=== PATIENT | male | born 1970 | race Caucasian/White ===

== ENCOUNTER 2023-08-03 10:37 | Emergency (ER) | payer OTHER, SELFPAY ==
--- NOTE | ~2023-08-03 | CT_ITS ---
EXAMINATION: CT lumbar spine wo con DATE: 08/03/2023 13:29 INDICATION: Low back pain. TECHNIQUE: Computed tomography (CT) of the lumbar spine was performed without intravenous contrast. A utomated exposure control and iterative reconstruction technique were employed. The dose-length produ ct was 1362.12 mGy-cm. COMPARISON: None FINDINGS: Bone alignment is normal. There is mild chronic anterior wedging of T12 vertebral body, lik ricardo physiologic. There are Schmorl's nodes at multiple levels. There is mildly decreased disc height at T11-T12. The following disc levels are specifically discussed: L1-L2: The disc does not extend beyond the endplate margin. There is moderate right and severe left f acet joint osteoarthritis. There is no neural foraminal stenosis. There is no central canal stenosis. L2-L3: The disc does not extend beyond the endplate margin. There is severe bilateral facet joint ost eoarthritis. There is no neural foraminal stenosis. There is no central canal stenosis. L3-L4: The disc does not extend beyond the endplate margin. There is severe bilateral facet joint ost eoarthritis. There is no neural foraminal stenosis. There is no central canal stenosis. L4-L5: The disc is bulging. There is severe bilateral facet joint osteoarthritis. There is mild bilat eral neural foraminal stenosis. There is mild central canal stenosis. L5-S1: The disc is bulging. There is severe bilateral facet joint osteoarthritis. There is mild left neural foraminal stenosis. There is mild central canal stenosis. IMPRESSION: 1. Mild lumbar spondylosis. Reviewed, dictated and finalized at location A. AGENT IMPRESSION: 1. Mild lumbar spondylosis.
[2023-08-03 10:56] VITALS: BP 152/90; PULSE 50; RESP 20; TEMP 36.2; O2SAT 99
--- NOTE | 2023-08-03 12:56 | ED.GENADULT ---
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 He reports his pain is midline lower No flank pain No numbness/tingling/ no loss of bowel or bladder Related Data Allergies Allergy/AdvReac Type Severity Reaction Status Date / Time No Known Drug Allergies Allergy Unknown Verified 08/06/16 09:17 Review of Systems Review of Systems: CONSTITUTIONAL: Denies fever, chills, or sweats. EYES: Denies visual changes, redness, or discharge. ENT: Denies rhinorrhea, congestion, sore throat, or otalgia. CARDIOVASCULAR: Denies chest pain, palpitations, or edema. RESPIRATORY: Denies cough or dyspnea. GASTROINTESTINAL: Denies abdominal pain, nausea, vomiting, or diarrhea. GENITOURINARY: Denies dysuria or hematuria. SKIN: Denies rash or itching. MUSCULOSKELETAL: Reports severe mid lower back pain that started 4 days ago NEUROLOGIC: Denies headache, numbness, dizziness, or weakness. PSYCHIATRIC: Denies anxiety or depression. [facility] Family History Family History Other Cerebrovascular accident Diabetes mellitus Hypertension Social History Social History Alcohol intake: current Exam Narrative: GENERAL: Well-appearing, well-nourished, and in no acute distress. HEAD: Normocephalic, atraumatic. EYES: PERRLA and EOMI. ENT: Nares clear, no rhinorrhea or epistaxis. Mucous membranes moist. Oropharynx without tonsillar hypertrophy exudate or other lesions. NECK: Supple. No adenopathy or masses. No carotid bruits or JVD CHEST: Clear to auscultation. No respiratory distress. No wheezes rales or rhonchi HEART: Regular rate and rhythm. No murmur heard. Normal peripheral pulses. ABDOMEN: Soft, nontender, nondistended, normal active bowel sounds. EXTREMITIES: Normal range of motion. No edema. SKIN: Warm, dry, no rash. NEURO: No focal deficits. Alert and oriented x3. PSYCH: Normal mood and affect. Course Vital Signs Vital signs: Vital Signs Temperature 36.2 C L 08/03/23 10:56 Pulse Rate 50 L 08/03/23 10:56 Respiratory Rate 20 08/03/23 10:56 Blood Pressure 152/90 H 08/03/23 10:56 Pulse Oximetry 99 08/03/23 10:56 Oxygen Delivery Room Air 08/03/23 10:56 Temperature 36.2 C L 08/03/23 10:56 Pulse Rate 78 08/03/23 15:02 Respiratory Rate 18 08/03/23 15:02 Blood Pressure 139/88 08/03/23 15:02 Pulse Oximetry 99 08/03/23 15:02 Oxygen Delivery Room Air 08/03/23 10:56 Medical Decision Making [facility] Narrative Medical decision making narrative: No fall / trauma noted - he explains he was straining himself with heavy lifting 4 days ago No cervical / thoracic spinal tenderness with palpation + lumbar spinal tenderness with palpation No saddle paraesthesia NO loss of bowel or bladder No fever/chills / no abdominal pain NO CVA tenderness Concern for: DDD/ Lumbar strain/ lumbago/ compression fracture Plan to check CT of Lumbar spine and treat his pain CT is showing osteoarthritis and bulging discs Updated pt on results and re-evaluated - he is feeling better Plan to d/c home with continued pain control Close follow up with PCP work note to avoid strenuous activity Strict return precautions provided Medical Records Medical records reviewed: Yes I reviewed the external patient's medical records. Vital Signs Vital Signs: Vital Signs Temperature 36.2 C L 08/03/23 10:56 Pulse Rate 50 L 08/03/23 10:56 Re
[2023-08-03] MEDS: diazePAM (*CRX) 5 MG TABLET PO (13:10)
[2023-08-03] MEDS: KETOROLAC 30 MG/ML VIAL (*BKC) IM (13:10)
[2023-08-03] MEDS: HYDROcodone/acetaminophen (*CRX) 5-325 MG TABLET 1 TAB PO (13:10)
[2023-08-03 15:02] VITALS: BP 139/88; PULSE 78; RESP 18; O2SAT 99
== END 2023-08-03 15:04 | disposition home or self-care (01) ==
PROVIDERS: Emergency Provider Nurse Practitioner Family; PCP Family Medicine
DX: M47.896 Other spondylosis, lumbar region (principal); E11.9 Type 2 diabetes mellitus without complications; I10 Essential (primary) hypertension
CPT/HCPCS: 72131; 96372; 99284; A9270; J1885

== ENCOUNTER 2024-09-04 11:19 | Outpatient (CLI) | payer OTHER, SELFPAY ==
--- NOTE | ~2024-09-04 | XR_ITS ---
3 VIEWS LUMBAR SPINE Ordering provider: Alix Xie, HIM TECH History: . low back pain . Comparison: None. FINDINGS: VERTEBRAL BODIES: No visible fracture or subluxation. Highly suggestive spondylolysis at the level of L5-S1. DISK SPACES: Normal. SOFT TISSUES: Normal. IMPRESSION: Highly suggestive spondylolysis at the level of L5-S1 otherwise, No acute osseous abnormality lumbar spine. Reviewed, dictated and finalized at location A. ANICAL DESIGN DRAFTER IMPRESSION: Highly suggestive spondylolysis at the level of L5-S1 otherwise, No acute osseo us abnormality lumbar spine.
== END 2024-09-04 11:20 | disposition home or self-care (01) ==
LOC: MICIMG 11:21
PROVIDERS: PCP Nurse Practitioner Family; Visit Provider Nurse Practitioner Family
DX: M54.50 Low back pain, unspecified (principal)
CPT/HCPCS: 72100